=== PATIENT | female | born 1945 | race Caucasian/White ===

== ENCOUNTER 2016-11-20 11:34 | Emergency (ER) | payer OTHER ==
[2016-11-20 12:20] LABS: COLOR YELLOW; LEUKOCYTE ESTERASE,URINE NEGATIVE (NEGATIVE); NITRITE,URINE NEGATIVE (NEGATIVE); PH,URINE 5.5 (5.0-7.5)
[2016-11-20] MEDS ORDERED: ONDANSETRON 4 MG/2 ML VIAL IVP ONE (12:22)
[2016-11-20] MEDS ORDERED: NS 1,000 ML IV ONE ×2 (12:22→12:32)
[2016-11-20 12:27] VITALS: RESP 18; TEMP 98.2
[2016-11-20 12:28] LABS: BACTERIA TRACE /hpf (NONE SEEN)
[2016-11-20 13:11] LABS: CALCIUM 10.2 mg/dL (8.5-10.4); CREATININE 1.2 mg/dL (0.6-1.0)
[2016-11-20 13:13] LABS: POTASSIUM 4.9 mEq/L (3.5-5.2)
--- NOTE | 2016-11-20 14:03 | UCPHY ---
H & P Patient Type: Established Chief Complaint Nursing Narrative: RIGHT FLANK PAIN STARTED LAST NIGHT, DENIES N /V, DENIES FEVERS. THINKS IS A KIDNEY STONE Time Seen by Provider: 11/20/16 12:22 HPI/ROS: This patient reports abrupt onset of left flank pain yesterday that is aching and sharp in nature 2009 peak intensity and similar to prior ureteral stones. She has associated nausea but no vomiting. She had partial relief from OxyContin at home last night. She has not taken anything today. Symptoms do not worsen with movement she notes no other exacerbating or alleviating factors. She felt well prior to the onset of the symptoms. ROS: No fevers or chills. No other constitutional symptoms. She reports that the pain migrated from the back down toward the left lower quadrant over the past 24 hours. She specifies that she still has some flank discomfort but is equal to the discomfort in the left lower quadrant currently. She reports no HEENT complaints. No pulmonary complaints. She has no chest pain. No lightheadedness. : No hematuria. No significant dysuria. 10 point ROS is otherwise negative Source: Patient Exam Limitations: No limitations - Medical/Surgical History PMH: Previous ureteral stones. , hypercholesterolemia, GERD, chronic pain Hx Diabetes: Yes Hx Renal Disease: Yes Other PMH: arthritis, right hip replacement, ortho/chronic back pain/ appy/ gerd /GB, DIABETES, HTN, STAGE 3 KIDNEY DX. - Family History Significant Family History: No pertinent family hx - Social History Smoking Status: Never smoked Alcohol Use: Rarely Drug Use: None Additional Social History: The patient declines analgesics explaining that she drove here and wants to drive home - Physical Exam Exam: General Appearance: Pleasant 71-year-old female in mild discomfort due to pain Alert, no distress. Eyes: Pupils equal and round no pallor or injection. ENT, Mouth: Mucous membranes moist. Respiratory: There are no retractions, lungs are clear to auscultation. Cardiovascular: Regular rate and rhythm. Gastrointestinal: Minimal left lower quadrant tenderness with no guarding or rebound. Back: Mild to moderate left CVA tenderness Neurological: Clear with no focal deficits Skin: Warm and dry, no rashes. Musculoskeletal: Neck is supple nontender. Extremities are symmetrical, full range of motion. Psychiatric: Mood and affect normal DIFFERENTIAL DIAGNOSIS: After history and physical exam differential diagnosis was considered for ureteral stone, pyelonephritis, nephritis, Constitutional: Initial Vital Signs Temperature (C) 36.8 C 11/20/16 12:10 Heart Rate 85 11/20/16 12:10 Respiratory Rate 18 11/20/16 12:10 Blood Pressure 156/112 H 11/20/16 12:10 O2 Sat (%) 95 11/20/16 12:10 O2 Delivery Mode Room Air Allergies/Adverse Reactions: erythromycin base [Erythromycin Base] Allergy (Verified 11/20/16 12:23) NSAIDS (Non-Steroidal Anti-Inflamma [Nsaids] Allergy (Verified 11/20/16 12:23) Sulfa (Sulfonamide Antibiotics) Allergy (Verified 11/20/16 12:23) Home Medications: Medication Instructions Recorded ALBUTEROL SULFATE 05/11/10 AMBIEN 05/11/10 Advair 500/50 05/11/10 CRESTOR 05/11/10 FLUTICASONE PROPIONATE 05/11/10 Flexeril 05/11/10 PROMETHAZINE HCL 05/11/10 Protonix 05/11/10 SINGULAIR 05/11/10 Vitamin D 05/11/10 oxyCONTIN 05/11/10 Victoza 3-Maurisio 04/27/15 Januvia 50 mg 11/20/16 oxyCODONE/APAP 5/325 [Percocet 1 - 2 tab PO Q4-6PRN PRN #15 tab 11/20/16 5/325 (*)] Medical Decision Making - Diagnostics Imaging: CT abdomen pelvis reveals a left 3.5 mm distal ureteral stone with moderate hydronephrosis per Dr. Tineo-radiologist with whom I spoke about this study. ED Course/Re-evaluation: Patient paced back and forth while here. She received a L saline bolus and she had complete resolution of pain without analgesics really prior to arrival. She thinks that she passed stone given her spontaneous resolution of her symptoms. - Data Points Laboratory Results: Laboratory Results 11/20/16 12:50 11/20/16 11/20/16 12:50 12:05 Sodium 137 mEq/L mEq/L (134-144) Potassium 4.9 mEq/L mEq/L (3.5-5.2) Chloride 100 mEq/L mEq/L (97-110) Carbon Dioxide 24 mEq/l mEq/l (22-31) Anion Gap 13 mEq/L mEq/L (8-16) BUN 27 mg/dL H mg/dL (7-23) Creatinine 1.2 mg/dL H mg/dL (0.6-1.0) Estimated GFR 44 Glucose 132 mg/dL H mg/dL (70-100) Calcium 10.2 mg/dL mg/dL (8.5-10.4) Urine Color YELLOW Urine Appearance CLEAR Urine pH 5.5 (5.0-7.5) Ur Specific [place] <= 1.005 (1.002-1.030) Urine Protein NEGATIVE (NEGATIVE) Urine Ketones NEGATIVE (NEGATIVE) Urine Blood 3+ H (NEGATIVE) Urine Nitrate NEGATIVE (NEGATIVE) Urine Bilirubin NEGATIVE (NEGATIVE) Urine Urobilinogen 0.2 EU EU (0.2-1.0) Ur Leukocyte Esterase NEGATIVE (NEGATIVE) Urine RBC 5-10 /hpf H /hpf (0-3) Urine WBC 1-3 /hpf /hpf (0-3) Ur Epithelial Cells TRACE /lpf /lpf (NONE-1+) Urine Bacteria TRACE /hpf H /hpf (NONE SEEN) Ur Culture Indicated? NOT INDICATED (NI) Urine Glucose NEGATIVE (NEGATIVE) Medications Given: Discontinued Medications Sodium Chloride (Ns) 1,000 mls @ 0 mls/hr IV ONCE ONE PRN Reason: Wide Open Stop: 11/20/16 12:23 Last Admin: 11/20/16 13:26 Dose: Not Given Sodium Chloride (Ns) 1,000 mls @ 0 mls/hr IV ONCE ONE PRN Reason: Wide Open Stop: 11/20/16 12:33 Last Admin: 11/20/16 13:11 Dose: 1,000 mls Morphine Sulfate (Morphine) 4 mg IVP EDNOW ONE Stop: 11/20/16 12:23 Last Admin: 11/20/16 13:26 Dose: Not Given Ondansetron HCl (Zofran) 4 mg IVP EDNOW ONE Stop: 11/20/16 12:23 Last Admin: 11/20/16 13:26 Dose: Not Given Departure - Departure Disposition: Home, Routine, Self-Care Clinical Impression: Ureteral stone with hydronephrosis Condition: Good Instructions: Ureteral Stones (ED) Additional Instructions: Diagnosis: Left ureteral stone Plan: Drink plenty fluids Oxycodone or OxyContin for pain as needed. Zofran if needed for nausea Filter your urine to catch the stone document passage. If symptoms are not resolving then follow up with Dr. Richard Wilkerson-urologist Go to the emergency department for any significant worsening despite the treatment plan. Referrals: Jasmine Palomares MD [Primary Care Provider] - As per Instructions Richard Wilkerson MD [Medical Doctor] - As per Instructions Prescriptions: oxyCODONE/APAP 5/325 [Percocet 5/325 (*)] 1 - 2 tab PO Q4-6PRN PRN #15 tab PRN Reason: Pain - PQRS PQRS Measurement: 134: Depression screening and followup, PRIME MD-PHQ2 (12 years and older) Over the last 2 weeks, how often have you been bothered by any of the following problems? 1. Feeling down, depressed, or hopeless? 2. Little interest or pleasure in doing things? Patient answered no to both 1 and 2 130: Documentation of medications. Reviewed all patient medications, doses, route and frequency. 226: Do you smoke? [No.] 47: 65 and older: Advanced care planning. Patient designates surrogate decision maker as spouse 51: 18 years old and older with diagnosis of COPD, spirometry performance. NA 52: 18 years old and older with COPD and symptoms of COPD or FEV1<60% predicted prescribed a B Agonist. NA
[2016-11-20 14:04] VITALS: BP 152/84; PULSE 74; O2SAT 94
== END 2016-11-20 14:07 | disposition home or self-care (01) ==
LOC: CED 11:34
DX: N13.2 Hydronephrosis with renal and ureteral calculous obstruction (principal); Z87.442 Personal history of urinary calculi; E78.5 Hyperlipidemia, unspecified; K21.9 Gastro-esophageal reflux disease without esophagitis; G89.29 Other chronic pain; N18.3 Chronic kidney disease, stage 3 (moderate); E11.22 Type 2 diabetes mellitus with diabetic chronic kidney disease; I12.9 Hypertensive chronic kidney disease with stage 1 through stage 4 chronic kidney disease, or unspecified chronic kidney disease
CPT/HCPCS: 74176; 96360; G0463; 80048-PO; 81003-PO; 81015-PO; 99215-PO

== ENCOUNTER → 2018-05-23 | Outpatient (CLI) | payer OTHER | CPT/HCPCS: 78452; 93017; A9500; J2785 ==

== ENCOUNTER 2018-06-08 07:36 | Day surgery (SDC) | payer OTHER, MEDICARE ==
[2018-06-08] MEDS ORDERED: DIAZEPAM 5 MG TAB PO ONE (07:40)
[2018-06-08] MEDS ORDERED: NS 1,000 ML IV ONE (07:40)
[2018-06-08] MEDS ORDERED: FAMOTIDINE 20 MG TAB PO ONE (07:40)
[2018-06-08] MEDS ORDERED: diphenhydrAMINE 25 MG CAP PO ONE ×2 (07:40→07:44)
[2018-06-08] MEDS ORDERED: DIAZEPAM 5 MG TAB ONE ×2 (07:44→07:47)
[2018-06-08] MEDS ORDERED: FAMOTIDINE 20 MG TAB ONE (07:44)
[2018-06-08 08:35] LABS: PLATELET COUNT 124 10^3/uL (150-400)
[2018-06-08] MEDS ORDERED: fentaNYL 100 MCG/2 ML INJ ONE ×2 (08:40→09:22)
[2018-06-08] MEDS ORDERED: LIDOCAINE 1% 300 MG/30 ML SDV ONE (08:40)
[2018-06-08 08:41] LABS: INR 0.99 (0.83-1.16); PROTIME(PATIENT) 13.3 SEC (12.0-15.0)
[2018-06-08] MEDS ORDERED: MIDAZOLAM 2 MG/2 ML VIAL ONE ×2 (08:41→09:22)
[2018-06-08] MEDS ORDERED: IOPAMIDOL (ISOVUE-370) 150 ML BTL IV ONE (08:41)
--- NOTE | 2018-06-08 08:55 | PDHPUP ---
History & Physical Update H&P update statement: This history and physical update is based on an assessment of the patient which was completed after admission or registration (within 24 hours), but prior to the surgery/procedure. H&P update: H&P reviewed & patient examined, no change in patient's condition since H&P completed
--- NOTE | 2018-06-08 08:56 | PDPROPOC ---
Sedation Plan of Care Sedation Plan of Care: vital signs stable, mental status noted, patient educated of risks, benefits, alternatives, patient can tolerate sedation ASA Classification: ASA 2 Planned drugs: fentanyl, midazolam Mallampati Score: Class 3 Mallampati Reference Image: Patient passed 3-3-2 rule?: Yes
--- NOTE | 2018-06-08 10:10 | CPIP ---
DATE OF PROCEDURE: 06/08/2018 PROCEDURES: 1. Coronary angiography. 2. Left ventriculography. INDICATIONS: 1. Dyspnea on exertion concerning for class 3 anginal equivalent. 2. Abnormal nuclear stress test with inferior infarction that is intermediate risk. ACCESS: Patient was prepped and draped in sterile fashion. 1% lidocaine was used to anesthetize the right inguinal region. A 6-Singaporean introducer sheath was placed selectively into the right common fe moral artery via modified Seldinger technique. CORONARY ANGIOGRAPHY: A 6-[place]an JL4 catheter was advanced to the left main coronary artery and imag es obtained. The left main coronary artery bifurcated into an LAD and circumflex coronary arteries. The left main coronary artery appeared normal. The left anterior descending coronary artery is diff usely diseased. In the mid vessel, just after the takeoff of the first diagonal artery, there is seq uential 50% stenosis present. The circumflex coronary artery was a large vessel but was nondominant. THE circumflex coronary artery had mild luminal irregularities throughout. There was no stenosis g reater than 20%. A 6-Singaporean JR4 was advanced to the right coronary artery and images obtained. The right coronary artery is dominant. The right coronary artery had a segmental 20% stenosis in the pro ximal vessel. LEFT VENTRICULOGRAPHY: A 6-Singaporean pigtail catheter was advanced in the left ventricle and images obt ained. Left ventricle was normal in size and had normal systolic function. Estimated ejection fract ion of 60%. The LVEDP was 19 mmHg. COMPLICATIONS: None. CONCLUSIONS: 1. Moderate coronary artery disease. 2. Normal left ventricular systolic function. 3. Plan is for medical management. /[id number]/MODL
[2018-06-08] MEDS ORDERED: ATROPINE SULFATE 1 MG/10 ML SYR IVP PRN (12:44)
[2018-06-08] MEDS ORDERED: ONDANSETRON 4 MG/2 ML VIAL IVP PRN (12:44)
[2018-06-08] MEDS ORDERED: NITROGLYCERIN 0.4 MG BTL SL PRN (12:44)
--- NOTE | 2018-06-08 13:12 | ECHO ---
[email or web address] [address] [address] Main: [phone] Fax: Transthoracic Echocardiogram Name: JOSE ALFREDO CHANEL MR#: [id number] Study Date: 06/08/2018 Study Time: 10:37 AM Date of : 1945 Age: 72 year(s) Height: 165.1 cm (65 in.) Weight: 95.26 kg (210 lb.) BSA: 2.02 m2 Gender: Female Examination: Echo Indication: Post Cath, Shortness of breath Image Quality: Contrast: Requested by: Dave Galvan BP: 128 mmHg/76 mmHg Heart Rate: Rhythm: Normal sinus rhythm Indication: Post Cath, Shortness of breath Procedure Staff Overcoiler: Helio Fan RDCS Reading Physician: Inocencio Jackson MD Requesting Provider: Conclusions: Normal study Measurements: Chambers Valvular Assessment AV/MV Valvular Assessment TV/PV Normal Normal Normal Name Value Range Name Value Range Name Value Range Ao Lamar (MM): 3.5 cm (2.2 cm-3.7 AV Vmax: 1.18 m/s (1 m/s-1.7 PV Vmax: 0.68 m/s (0.6 m/s-0.9 cm) m/s) m/s) IVSd (2D): 0.8 cm (0.6 cm-1.1 AV maxP mmHg ( - ) PV PGmax: 2 mmHg ( - ) cm) LVOT Vmax: 0.91 m/s (0.7 m/s-1.1 LVDd (2D): 4.5 cm (3.9 cm-5.3 m/s) cm) MV E Vmax: 0.92 m/s ( - ) LVDs (2D): 2.5 cm (2.1 cm-4 MV A Vmax: 0.66 m/s ( - ) cm) MV E/A: 1.39 ( - ) LVPWd (2D): 1.0 cm ( - ) LVEF (2D): 75 (>=54 %) Continued Measurements: Chambers Valvular Assessment AV/MV Name Value Name Value LADs Lon.9 cm MV E/E' Lateral: 15.80 LA Area: 17.6 cm2 Findings: Left Ventricle: Normal size left ventricle. No LV hypertrophy. Normal global systolic LV function. EF is 75 %. No regional wall motion abnormality. Diastolic dysfunction is present. . Right Ventricle: Patient: JOSE ALFREDO CHANEL Study Date: 06/08/2018 Page 1 of 2 10:37 AM Normal size right ventricle. Normal RV function. Left Atrium: The left atrium is normal in size. Right Atrium: The right atrium is normal in size. Mitral Valve: The mitral valve is normal in appearance and function. There is no mitral valve regurgitation. Aortic Valve: The aortic valve is normal in appearance and function. There is no aortic valve regurgitation. Tricuspid Valve: The tricuspid valve is normal in appearance and function. Pulmonic Valve: The pulmonic valve is normal in appearance and function. Aorta: The ascending Ao measures 3.6cm. Pericardium: No pericardial effusion. (No Signature Object) Patient: JOSE ALFREDO CHANEL Study Date: 06/08/2018 Page 2 of 2 10:37 AM [id number]
--- NOTE | 2018-06-08 14:17 | CPEKG ---
Test Reason : OPEN Blood Pressure : / mmHG Vent. Rate : 059 BPM Atrial Rate : 059 BPM P-R Int : 161 ms QRS Dur : 094 ms QT Int : 423 ms P-R-T Axes : 027 001 018 degrees QTc Int : 419 ms Sinus rhythm Abnormal R-wave progression, early transition Confirmed by Reuben Garcia ([id number]) on 06/08/2018 2:16:38 PM Referred By: Confirmed By:Reuben Garcia
== END 2018-06-08 13:15 | disposition home or self-care (01) ==
LOC: FCATH 07:36
PROVIDERS: ATTEND Internal Medicine Cardiovascular Disease
PROC: B2111ZZ Fluoroscopy of Multiple Coronary Arteries using Low Osmolar Contrast (ICD-10-PCS; principal; 2018-06-08)
PROC: B2151ZZ Fluoroscopy of Left Heart using Low Osmolar Contrast (ICD-10-PCS; principal; 2018-06-08)
PROC: 4A023N7 Measurement of Cardiac Sampling and Pressure, Left Heart, Percutaneous Approach (ICD-10-PCS; principal; 2018-06-08)
DX: Z01.810 Encounter for preprocedural cardiovascular examination (principal); I25.10 Atherosclerotic heart disease of native coronary artery without angina pectoris; R07.9 Chest pain, unspecified; R06.02 Shortness of breath; R94.39 Abnormal result of other cardiovascular function study; R01.1 Cardiac murmur, unspecified; I10 Essential (primary) hypertension; E78.5 Hyperlipidemia, unspecified; E11.9 Type 2 diabetes mellitus without complications; Z82.49 Family history of ischemic heart disease and other diseases of the circulatory system
CPT/HCPCS: C1760; J1644; J2250; J3010; Q9967

== ENCOUNTER → 2018-06-15 | Outpatient (CLI) | payer OTHER, MEDICARE ==
[~2018-06-15] MED LIST: IOPAMIDOL (ISOVUE 370) 100 ML BTL IV ONE
== END ==
LOC: FIMAGING 10:32
PROVIDERS: ATTEND Internal Medicine Cardiovascular Disease
DX: R06.02 Shortness of breath (principal); R53.83 Other fatigue; R91.1 Solitary pulmonary nodule; K44.9 Diaphragmatic hernia without obstruction or gangrene; N20.0 Calculus of kidney
CPT/HCPCS: 71275; 93225; 93226; Q9967